=== PATIENT | male | born 1975 | race Caucasian/White ===

== ENCOUNTER 2019-11-22 09:59 | Outpatient (CLI) | payer OTHER, SELFPAY ==
[2019-11-22 10:47] VITALS: BMI 27.9
--- NOTE | 2019-11-22 11:04 | ECG_ITS ---
NAME OF STUDY: TREADMILL STRESS ECHOCARDIOGRAM INDICATION: Chest Pain, PROCEDURE: The baseline electrocardiogram showed normal sinus rhythm with diffuse nonspecific ST-T changes. At the baseline, the patient's blood pressure was 132/71 mm Hg with a heart rate of 90. The patient exercised for 7 minutes and 51 seconds on a standard Jose protocol. Patient attained a maximum heart rate of 158 beats per minute(90 % of the maximum predicted heart rate) with a blood pressure at the peak exercise of 184/81 mm Hg. The EKG at the peak exercise revealed normal nonspecific ST-T changes.. Patient did not have any chest pain or any significant arrhythmis with the exercise Echocardiogram pictures were taken at the baseline, peak exercise and during the recovery phase. During the recovery phase, there were no new changes. Blood pressure at the end of the recovery phase was 142/80 mm Hg with a heart rate of 102 per minute. CONCLUSION: 1. Nonspecific EKG changes with the treadmill exercise 2. No exercise-induced chest pain or cardiac arrhythmia 3. Fair exercise tolerance, attained a maximum of 10.2 METs 4. Echocardiographic pictures were taken in standard views; see separate report. Electronically Signed On 11-22-2019 22:40:34 [employer] by Luz Quinn M.D. [email or web address]
[2019-11-22 11:29] VITALS: BP 156/58; PULSE 100
--- NOTE | 2019-11-22 12:15 | USCV_ITS ---
Lul Fatima Age: 44 Gender: M : 1975 Exam Date: 11/22/2019 11:06 Ordering Phys: Luz Quinn MD ([email or web address]) Technologist: JEANNETTE IVERSON Exam Location: [facility] – [place] Indication: Rhythm: Sinus Patient History: HTN Cardiac Medications: none Medications in past 24 hours: none Contrast: Stress Results Protocol: Jose Total dose(mL): Exercise Duration (min:sec): 7:51 METS: 10.2 Resting HR: 72 Resting BP: 132 / 71 Peak HR: 158 Peak BP: 184 / 82 Max Predicted HR: 175 90 % Max Predicted HR Target HR: 149 Double Product: 37197 Stress Summary: The patient's target heart rate was achieved BP Response: Normal Reason for Termination: Test terminated after reaching target heart rate (85% max predicted) Cardiac Symptoms: None ECG Analysis Resting ECG: Please see separate report Stress ECG: Please see separate report Arrhythmia: Please see separate report MEASUREMENTS (Male/Female) Normal Values FINDINGS The baseline echocardiogram revealed normal LV size and ejection fraction. Segmental wall motion analysis revealed no gross wall motion normalities. No significant abnormalities in the morphology of the aortic and mitral valves. Normal aortic root size. No pericardial effusion. With the peak exercise, there was good augmentation of all the segments with no exercise-induced wall motion normalities. During the recovery phase, there was no new changes. CONCLUSIONS Normal echocardiographic response to exercise No significant coronary ischemia, based on the above findings Dr Luz Quinn MD FACC (Electronically Signed) Final Date: 23 November 2019 09:30 S
== END 2019-11-22 10:00 | disposition home or self-care (01) ==
LOC: CDL 10:02
PROVIDERS: Family Provider Nurse Practitioner Family; PCP Nurse Practitioner Family; Visit Provider Internal Medicine Cardiovascular Disease
DX: R07.89 Other chest pain (principal)
CPT/HCPCS: 93017; 93350

== ENCOUNTER 2020-11-20 09:59 | Outpatient (CLI) | payer OTHER, SELFPAY ==
--- NOTE | 2020-11-20 10:04 | MR_ITS ---
WS: [id number] MRI HEAD WITH CONTRAST WITH ATTENTION TO THE INTERNAL AUDITORY CANALS TECHNIQUE: Sagittal T1, T2 axial, T2 axial flair, axial susceptibility weighted imaging, axial diffus ion weighted images, and coronal T2 images were obtained. Pre and post T1 axial and post T1 coronal i mages. ADC and FSPGR images. Post gadolinium images with attention to the internal auditory canals. A xial fiesta imaging. CLINICAL INFORMATION: DIZZINESS AND GIDDINESS COMPARISON: None. FINDINGS: No evidence of restricted diffusion to suggest acute ischemia. Ventricular system and basal cisterns are patent. No hemosiderin on susceptibly weighted images. Proximal 7th and 8th cranial nerves are no rmal. Normal trigeminal nerve root entry zones. No evidence of enhancing IAC or CP angle mass. Normal posterior fossa. Normal vascular flow voids at the skull base. Mucosal thickening with opacification left maxillary si nus. Normal optic chiasm and pituitary infundibulum. Normal cavernous sinuses and Meckel's cave. A fe w tiny foci of T2 hyperintensity in the periventricular white matter of doubtful clinical significanc e but can be seen with migraine headaches. MR/MR iac's wo/w con* [id number] IMPRESSION: 1. No evidence of restricted diffusion to suggest acute ischemia. 2. Proximal 7th and 8th cranial nerves are normal. No evidence of enhancing IA C or CP angle mass. Normal trigeminal nerve root entry zones. 3. Mastoid air cells well aerated. Opacification left maxillary sinus. 4. No abnormal intracranial enhancement.
== END 2020-11-20 10:00 | disposition home or self-care (01) ==
LOC: RADWPI 10:02
PROVIDERS: PCP Nurse Practitioner Family; Visit Provider Specialist
DX: R42 Dizziness and giddiness (principal)
CPT/HCPCS: 70553; A9579

== ENCOUNTER 2024-09-05 07:51 | Outpatient (CLI) | payer BC, SELFPAY ==
--- NOTE | 2024-09-05 09:10 | NM_ITS ---
WS: [id number] NUCLEAR MEDICINE THYROID UPTAKE AND SCAN HISTORY: NONTOXIC SINGLE THROID NODULE , ABNORMAL TFT COMPARISON: 08/11/2017 Radionucleotide: 151 uCi Iodine-123 sodium iodide capsule. Oral ingestion. Imaging performed at 24 hours post ingestion of capsule. Marker placed over the chin and suprasternal notch. Marked increased uptake in the RIGHT side of the thyroid gland. This is much more pronounced than on the prior study. 2 thyroid lobes are difficult to identify as the majority of the radionuclide is wit hin the RIGHT lobe hyperfunctioning nodule. Thyroid uptake at 24 hours: 71.18%. (Normal uptake at 24 hours 10-30%). NM/NM thyroid uptake multi 72107 IMPRESSION: Hyperfunctioning RIGHT thyroid nodule. 24-hour uptake is 71.18% which is markedly elevated.
== END 2024-09-05 07:52 | disposition home or self-care (01) ==
PROVIDERS: PCP Nurse Practitioner Family; Visit Provider Specialist
DX: E05.10 Thyrotoxicosis with toxic single thyroid nodule without thyrotoxic crisis or storm (principal)
CPT/HCPCS: 78014; A9516

== ENCOUNTER → 2025-01-27 12:39 | Outpatient (BNVA) | payer BC, SELFPAY | PROVIDERS: PCP Nurse Practitioner Family; Visit Provider Internal Medicine | DX: E21.3 Hyperparathyroidism, unspecified (principal); E05.10 Thyrotoxicosis with toxic single thyroid nodule without thyrotoxic crisis or storm | CPT/HCPCS: 36415; 83516; 84439; 84443; 84480; 86376; 86800 ==

== ENCOUNTER → 2025-04-17 09:25 | Outpatient (BNVA) | payer BC, SELFPAY | PROVIDERS: PCP Nurse Practitioner Family; Visit Provider Internal Medicine | DX: E05.10 Thyrotoxicosis with toxic single thyroid nodule without thyrotoxic crisis or storm (principal) | CPT/HCPCS: 36415; 84439; 84443; 84480 ==